=== PATIENT | male | born 1945 | race Two or more races ===

== ENCOUNTER 2024-08-28 22:48 | Emergency (ER) | payer OTHER ==
[~2024-08-28] VITALS: Ht 175.3 cm; Wt 64.5 kg
[2024-08-28 22:49] VITALS: BP 120/69; PULSE 72; RESP 16; O2SAT 99
--- NOTE | 2024-08-28 23:32 | ED.PDOC ---
History of Present Illness HPI Comments 79 year old male brought in by EMS presents to the ED with a chief complaint of syncopal episode onset today. Patient states he was standing when he began experiencing nausea, visual disturbance and then he woke up on the ground. EMS states patient was found on the floor, with visual bruising to LT side mouth, RT forearm, RT hand. Upon ED arrival patient states symptoms have approved, blood sugar was 130. Past medical history of CAD, TN x2, DM, HTN, HLD. Denies dizziness, headache, chest pain, shortness of breath, abdominal pain, dysruia, hematuria. No other symptoms or modifying factors present at this time. Chief Complaint: Syncope Time Seen by MD: 23:00 Reviewed Notes: Medications, Allergies Allergies: Coded Allergies: Oxycodone (Verified Allergy, Unknown, 08/28/24) Uncoded Allergies: CAT DANDER (Allergy, Unknown, 08/28/24) Information Source: Patient Mode of Arrival: EMS Severity: Moderate Timing: Hours Duration: Since onset Prehospital treatment: None Past Medical History PAST MEDICAL HISTORY: CAD, DM, High Lipids, HTN, TN Family History Family History: Unknown Social History Smoker: Non-Smoker Alcohol: Denies ETOH Use Drugs: Denies Drug Use Lives In: Home Constitutional: denies: chills, diaphoresis, fatigue, fever, malaise, sweats, weakness, others EENTM: reports: blurred vision, double vision; denies: ear bleeding, ear discharge, ear drainage, ear pain, ear ringing, eye pain, eye redness, hearing loss, mouth pain, mouth swelling, nasal discharge, nose bleeding, nose congestion, nose pain, photophobia, tearing, throat pain, throat swelling, voice changes, others Respiratory: denies: cough, hemoptysis, orthopnea, SOB at rest, shortness of breath, SOB with excertion, stridor, wheezing, others Cardiovascular: denies: chest pain, dizzy spells, diaphoresis, Dyspnea on e xertion, edema, irregular heart beat, left arm pain, lightheadedness, palpitations, PND, syncope, others Gastrointestinal: reports: nausea; denies: abdomen distended, abdominal pain, blood streaked bowels, constipated, diarrhea, dysphagia, difficulty swallowing, hematemesis, melena, poor appetite, poor fluid intake, rectal bleeding, rectal pain, vomiting, others Genitourinary: denies: burning, dysuria, flank pain, frequency, hematuria, incontinence, penile discharge, penile sore, pain, testicle pain, testicle swelling, urgency, others Neurological: reports: others (syncope); denies: dizziness, fainting, headache, left sided numbness, left sided weakness, numbness, paresthesia, pre-existing deficit, right sided numbness, right sided weakness, seizure, speech problems, tingling, tremors, weakness Musculoskeletal: denies: back pain, gout, joint pain, joint swelling, muscle pain, muscle stiffness, neck pain, others Integumetry: denies: bruises, change in color, change in hair/nails, dryness, laceration, lesions, lumps, rash, wounds, others Allergic/Immunocompromised: denies: Difficulty Healing, Frequent Infections, Hives, Itching, others Hematologic/Lymphatic: denies: anemia, blood clots, easy bleeding, easy bruising, swollen glands, others Endocrine: denies: excessive hunger, excessive sweating, excessive thirst, excessive urination, flushing, intolerance to cold, intolerance to heat, unexplained weight gain, unexplained weight loss, others Psychiatric: denies: anxiety, bipolar disorder, depression, hopeless, panic disorder, schizophrenia, sleepless, suicidal, others All Other Systems: Reviewed and Negative Physical Exam General Appearance: No Apparent Distress, Normal HEENT: Normal ENT Inspection, Pharynx Normal, TMs Normal Neck: Full Range of Motion, Non-Tender, Normal, Normal Inspection Respiratory: Chest Non-Tender, Lungs Clear, No Accessory Muscle Use, No Respiratory Distress, Normal Breath Sounds Cardiovascular: No Edema, No JVD, No Murmur, No Gallop, Normal Peripheral Pulses, Regular Rate/Rhythm Breast Exam: Deferred Gastrointestinal: No Organomegaly, Non Tender, No Pulsatile Mass, Normal Bowel Sounds, Soft Genitalia: Deferred Pelvic: Deferred Rectal: Deferred Extremities: No calf tenderness, Normal capillary refill, Normal inspection, Normal range of motion, Non-tender, No pedal edema Musculoskeletal : Apperance: Normal Neurologic: Alert, 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 Was a procedure done?: No Differential Dx Considerations may include: arrhythmias, mi, hypoglycemia, seizure, hypotension, electrolyte disorders, vasovagal syncope, cva, intracranial bleed, intracranial mass X-Ray, Labs, Meds, VS Vital Signs Date Time Temp Pulse Resp B/P (MAP) Pulse Ox O2 Delivery O2 Flow Rate FiO2 08/28/24 22:49 70 08/28/24 22:49 98.2 72 16 120/69 (86) 99 Lab Test 08/29/24 00:40 08/28/24 23:43 08/28/24 22:57 Range/Units Troponin I High Sensitivity Pending 7 </=54 ng/L White Blood Count 9.1 4.4-10.8 10^3/uL Red Blood Count 4.09 L 4.5-5.90 10^6/uL Hemoglobin 13.5 13.5-17.5 g/dL Hematocrit 39.8 L 41.0-53.0 % Mean Corpuscular Volume 97.3 80.0-100.0 fL Mean Corpuscular Hemoglobin 32.9 H 28.0-32.0 pg Mean Corpuscular Hemoglobin Concent 33.8 32.0-36.0 g/dL Red Cell Distribution Width 13.2 11.8-14.3 % Platelet Count 206 140-450 10^3/uL Mean Platelet Volume 6.7 L 6.9-10.8 fL Neutrophils (%) (Auto) 80.9 H 37.0-80.0 % Lymphocytes (%) (Auto) 12.6 10.0-50.0 % Monocytes (%) (Auto) 5.1 0.0-12.0 % Eosinophils (%) (Auto) 1.0 0.0-7.0 % Basophils (%) (Auto) 0.4 0.0-2.0 % Neutrophils # (Auto) 7.4 1.6-8.6 10 ^3/uL Lymphocytes # (Auto) 1.1 0.4-5.4 10 ^3/uL Monocytes # (Auto) 0.5 0-1.3 10 ^3/uL Eosinophils # (Auto) 0.1 0-0.8 10 ^3/uL Basophils # (Auto) 0 0-0.2 10 ^3/uL Nucleated Red Blood Cells 0.0 % Sodium Level 141 136-145 mmol/L Potassium Level 4.5 3.5-5.1 mmol/L Chloride Level 105 98-107 mmol/L Carbon Dioxide Level 23 20-31 mmol/L Anion Gap 13 5-15 Blood Urea Nitrogen 37 H 9-23 mg/dL Creatinine 1.63 H 0.700-1.30 mg/dL Glomerular Filtration Rate Calc 43 >90 mL/min BUN/Creatinine Ratio 22.7 H 10.0-20.0 Serum Glucose 122 H 74-106 mg/dL Calcium Level 10.0 8.7-10.4 mg/dL POC Glucose 142 H 70-106 mg/dl Time of 1ST Reevaluation: 23:30 Reevaluation 1ST: Unchanged Time of 2ND Reevaluation: 01:02 Reevaluation 2ND: Improved Patient Education/Counseling: Diagnosis, Treatment, Prognosis, Need For Follow Up Family Education/Counseling: No Family Present Additional Information I reviewed the following notes from patient's past medical encounters: The following tests were ordered, and results were reviewed by me: EKG, CT HEAD WO CONTRAST, CT CERVICAL WO CONTRAST, CBC, CMP, BMP, TROP, TROP, TROP, XY CHEST Additional Information was gathered from interviewing the following independent historians: EMS I reviewed and agreed with the following test results read by other providers: XY CHEST, CT HEAD WO CONTRAST, CT CERVICAL WO CONTRAST I discussed treatment and results with medical personnel and: patient Departure 1 Departure Time of Disposition: 01:03 Impression: Primary Impression: Syncope Qualified Codes: R55 - Syncope and collapse Additional Impressions: Contusion Qualified Codes: S00.03XA - Contusion of scalp, initial encounter Forearm contusion Qualified Codes: S50.11XA - Contusion of right forearm, initial encounter Disposition: 09 ADMITTED INPATIENT Admit to: Tele Condition: Stable Critical Care Note Critical Care Time?: Yes (55 min-critical care time only) Critical care comment: due to concerns for patient's condition deterioration, the care required my highest attention and readiness to intervene. i spoke to the family, patient, reviewed any records, ordered the appropriate tests and treatments, reviewed the results, response and communicated with medical personnel, formulated a plan of care. critical care time does not include any procedures Stability Stability form required: No I personally scribed for AUREA MARTELL MD ([facility]) on 08/28/24 at 23:32. Electronically submitted by Damari Erwin ([email or web address]). I personally scribed for AUREA MARTELL MD ([facility]) on 08/28/24 at 23:34. Electronically submitted by Damari Erwin ([email or web address]). I personally scribed for AUREA MARTELL MD ([facility]) on 08/28/24 at 23:53. Electronically submitted by Damari Erwin ([email or web address]). AUREA MARTELL MD Aug 28, 2024 23:32
[2024-08-28 23:57] LABS: Basophils # (auto) 0 10 ^3/uL (0-0.2); Basophils % (auto) 0.4 % (0.0-2.0); Eosinophils # (auto) 0.1 10 ^3/uL (0-0.8); Hematocrit 39.8 % (41.0-53.0); Hemoglobin 13.5 g/dL (13.5-17.5); Lymphocytes # (auto) 1.1 10 ^3/uL (0.4-5.4); Lymphocytes % (auto) 12.6 % (10.0-50.0); Mean Corpuscular Hemoglobin 32.9 pg (28.0-32.0); Mean Corpuscular Hgb Conc. 33.8 g/dL (32.0-36.0); Mean Corpuscular Volume 97.3 fL (80.0-100.0); Monocytes # (auto) 0.5 10 ^3/uL (0-1.3); Monocytes % (auto) 5.1 % (0.0-12.0); Neutrophils # (auto) 7.4 10 ^3/uL (1.6-8.6); Neutrophils % (auto) 80.9 % (37.0-80.0); Platelet Count (auto) 206 10^3/uL (140-450); Red Blood Cells 4.09 10^6/uL (4.5-5.90); Red Cell Distribution Width 13.2 % (11.8-14.3); White Blood Cell 9.1 10^3/uL (4.4-10.8)
--- NOTE | 2024-08-29 | DVH ---
CLINICAL HISTORY: injury TECHNIQUE: CT exam of the cervical spine was performed without intravenous contrast. This exam was pe rformed according to our departmental dose optimization program. Up-to-date CT equipment and radiatio n dose reduction techniques are utilized as appropriate. COMPARISON: None FINDINGS: There is normal cervical alignment. The vertebral body heights are maintained. No acute cervical frac ture or subluxation is identified. Multilevel cervical spondylosis with multilevel anterior osteophyt e formation and disc space narrowing most pronounced up to a [id number] degree at C3-C4, C5-C6, and C6-C7. Multilevel facet and uncovertebral hypertrophy resulting in multilevel bony neural kandy inal stenosis greatest up to moderate degree bilaterally at C4-C5, C5-C6. There is multilevel disc os teophyte complexes resulting in mild spinal stenosis at C3-C4 and C4-C5. The paraspinous soft tissue s are unremarkable. The lung apices are clear. There is calcified plaque at the aortic arch. There is mild calcified plaque in the distal left commo n carotid artery and left carotid bifurcation. IMPRESSION: 1. No acute fracture or traumatic malalignment. 2. Multilevel degenerative neural foraminal stenosis up to moderate bilaterally at C4-C5 and C5-C6 3. Mild degenerative spinal stenosis at C3-C4 and C4-C5
--- NOTE | 2024-08-29 00:01 | DVH ---
EXAM: XY CHEST PORTABLE CLINICAL HISTORY: syncope TECHNIQUE: Single AP view of the chest WID: COMPARISON: None FINDINGS: Lines and tubes: Prior median sternotomy and CABG. Chest: The heart size and pulmonary vasculature is within normal limits. Calcified plaque projects over the aortic arch. No pleural effusion, pneumothorax, or consolidation. The osseous structures are grossly intact. IMPRESSION: No acute cardiopulmonary abnormality.
[2024-08-29 00:06] LABS: Chloride 105 mmol/L (98-107); Potassium 4.5 mmol/L (3.5-5.1); Sodium 141 mmol/L (136-145)
[2024-08-29 00:07] LABS: Anion Gap 13 (5-15); Carbon Dioxide 23 mmol/L (20-31)
--- NOTE | 2024-08-29 00:07 | DVH ---
CLINICAL HISTORY: syncope, head injury TECHNIQUE: Helical imaging carried out from skull base to vertex without intravenous contrast. This e xam was performed according to our departmental dose optimization program. Up-to-date CT equipment an d radiation dose reduction techniques are utilized as appropriate. COMPARISON: None FINDINGS: Mild cerebral volume loss with concordant prominence of the subarachnoid spaces and ventricles. There is no midline shift or mass effect. The zaragoza white matter interfaces are maintained. The basal cisterns are patent. There is no evidence of acute intracranial hemorrhage or extra-axial fluid edgardo ection. The mastoid air cells and visualized paranasal sinuses are well-aerated. Right ocular lens re placement. Small posterior left parietal /occipital scalp contusion. IMPRESSION: 1. No acute intracranial abnormality. 2. Small posterior left parietal / occipital scalp contusion. 3. Mild cerebral volume loss.
[2024-08-29 00:12] LABS: BUN/Creatinine Ratio 22.7 (10.0-20.0)
[2024-08-29 00:28] LABS: Blood Urea Nitrogen 37 mg/dL (9-23); Glucose 122 mg/dL (74-106)
--- NOTE | 2024-08-29 05:51 | ECG ---
Test Date: 2024-08-28 Test Time: 22:49:53 Pat Name: JAZMIN ALEXANDRA Department: ER Room: Gender: M [employer]rections Lieutenant: AKIRA : 1945 Requested By: EMERGENCY EMERGENCY Order Number: [id number] Reading MD: Con Vila Measurements Intervals [place] Rate: 70 P: 60 OR: 171 QRS: 56 QRSD: 104 T: 38 QT: 427 QTc: 461 Interpretive Statements Sinus rhythm Anterior infarct, age indeterminate Electronically Signed On 08-29-2024 14:18:12 PST by Con Vila Please click the below link to view image of tracing.
== END 2024-08-29 06:45 | disposition left against medical advice (07) ==
LOC: ER 22:48
DX: S00.03XA Contusion of scalp, initial encounter (principal); S50.11XA Contusion of right forearm, initial encounter; R55 Syncope and collapse; I10 Essential (primary) hypertension; E11.9 Type 2 diabetes mellitus without complications; E78.5 Hyperlipidemia, unspecified; I25.2 Old myocardial infarction; Z88.5 Allergy status to narcotic agent; X58.XXXA Exposure to other specified factors, initial encounter; Y93.89 Activity, other specified; Y92.89 Other specified places as the place of occurrence of the external cause; Y99.8 Other external cause status
CPT/HCPCS: 36415; 70450; 71045; 72125; 80048; 82962; 84484; 85025; 93005